=== PATIENT | male | born 1940 | race Caucasian/White ===

== ENCOUNTER 2021-10-14 11:14 | Day surgery (SDC) | payer MEDICARE, OTHER ==
[~2021-10-14] VITALS: Ht 182.9 cm; Wt 82.6 kg
[~2021-10-14 11:14] MED LIST: ASPI81CH PO; Aspir 8181 MG PO; BUPR150ER PO; CODACE30 PO; CRESTOR PO; DOCU100 PO; EZET10 PO; FINA5 PO; GABA600 PO; ISOD40ER PO; Isosorbide Mono30 MG PO; METOPROLOL PO; PERCOCET 10-321 EAC1 PO; RANO500T PO; ROSU10TA PO; TAMS.4ER PO; TRAZ50 PO
--- NOTE | 2021-10-14 11:41 | NUR ---
10/14/21 1141 Elizabeth Nguyen EYE GTT @ 1118- KRISTYNET @ 1119 IN RIGHT EYE
== END 2021-10-14 13:17 | disposition home or self-care (01) ==
LOC: ORSCSDS 11:14
PROVIDERS: Ophthalmology
PROC: 08RJ3JZ Replacement of Right Lens with Synthetic Substitute, Percutaneous Approach (ICD-10-PCS; principal; 2021-10-14 12:30)
DX: H25.11 Age-related nuclear cataract, right eye (principal); H21.81 Floppy iris syndrome; F17.210 Nicotine dependence, cigarettes, uncomplicated; I25.2 Old myocardial infarction; Z79.899 Other long term (current) drug therapy; Z79.82 Long term (current) use of aspirin
CPT/HCPCS: J2001; J2250; J3010; J3301; J7040; V2632